=== PATIENT | female | born 2000 | race Caucasian/White ===

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

== ENCOUNTER 2020-02-22 11:33 | Emergency (ER) | payer OTHER ==
[2020-02-22 11:40] VITALS: BP 142/88; PULSE 73; TEMP 98.2; BMI 25.6
--- NOTE | 2020-02-22 12:31 | PDOC ---
History of Present Illness - General Chief Complaint: Pain Stated Complaint: ABD PAIN Time Seen by Provider: 02/22/20 12:16 History Source: Patient - History of Present Illness Timing/Duration: reports: intermittent Quality: reports: cramping Past History - Medical History Allergies/Adverse Reactions: Allergies Allergy/AdvReac Type Severity Reaction Status Date / Time No Known Allergies Allergy Verified 02/22/20 11:40 Home Medications: Ambulatory Orders No Home Medications 0 dose .ROUTE UTDICT 07/06/13 Ibuprofen [Motrin -] 400 mg PO TID #30 tablet 05/01/14 COPD: No - Reproductive History Is Patient Now?: No - Immunization History Immunization Up to Date: Yes - Psycho-Social/Smoking History Smoking Status: No Smoking History: Never smoked Have you smoked in the past 12 months: No Number of Cigarettes Smoked Daily: 0 - Substance Abuse Hx (Audit-C & DAST Scrn) How often the patient has a drink containing alcohol: Never Score: In Men: 4 or > Positive; In Women: 3 or > Positive: 0 Screen Result (Pos requires Nsg. Audit-10AR): Negative Review of Systems - Review of Systems Constitutional: No: Fever, Malaise, Weakness ABD/GI: Yes: Diarrhea, Abdominal cramping. No: Blood Streaked Bowels, Constipated, Nausea, Vomiting, Tarry Stools : No: Dysuria *Physical Exam - Vital Signs Last Vital Signs Temp Pulse Resp BP Pulse Ox 98.2 F 73 18 142/88 100 02/22/20 11:38 02/22/20 11:38 02/22/20 11:38 02/22/20 11:38 02/22/20 11:38 - Physical Exam General Appearance: Yes: Appropriately Dressed. No: Apparent Distress HEENT: positive: Normal Voice Neck: positive: Supple Respiratory/Chest: negative: Respiratory Distress Gastrointestinal/Abdominal: positive: Normal Bowel Sounds, Soft. negative: Tender, Distended, Guarding, Rebound Musculoskeletal: negative: CVA Tenderness Integumentary: positive: Dry, Warm Neurologic: positive: Fully Oriented, Alert, Normal Mood/Affect Medical Decision Making - Medical Decision Making 02/22/20 12:21 20-year-old female, no significant history, here with 3 episodes of non-bloody, watery stools since yesterday. Complains of mild crampy abdominal pain just before a diarrheal episode, otherwise no significant abdominal pain and no nausea vomiting fever or chills. No recent travel or known sick contacts. No recent antibiotic use see exam Diarrhea No RF for serious dysentery Well ashlee and stable w/ benign abd Dc w/ supportive tx To return as needed as d/w pt Discharge - Discharge Information Problems reviewed: Yes Clinical Impression/Diagnosis: Diarrhea Qualifiers: Diarrhea type: unspecified type Qualified Code(s): R19.7 - Diarrhea, unspecified Condition: Good Disposition: HOME - Follow up/Referral - Patient Discharge Instructions Patient Printed Discharge Instructions: Diarrhea Additional Instructions: Most case of diarrhea are not serious and self limited Drink plenty of fluids and take peptomismol as needed Return to ED if symptoms worsen - Post Discharge Activity
== END 2020-02-22 12:45 | disposition home or self-care (01) ==
LOC: JER 11:33
DX: R19.7 Diarrhea, unspecified (principal)
CPT/HCPCS: 99282-25

== ENCOUNTER 2020-06-10 09:49 | Emergency (ER) | payer OTHER | END 2020-06-10 11:43 | disposition home or self-care (01) | LOC: JVIRT 09:49 | DX: Z03.818 Encounter for observation for suspected exposure to other biological agents ruled out (principal) | CPT/HCPCS: C9803; G2012-GT; U0003 ==

== ENCOUNTER 2023-01-12 20:34 | Emergency (ER) | payer BC, OTHER ==
[2023-01-12 20:43] VITALS: BP 145/97; PULSE 81; RESP 18; TEMP 98.1; BMI 21.9
== END 2023-01-12 22:29 | disposition home or self-care (01) ==
LOC: JERFT 20:34
DX: R07.9 Chest pain, unspecified (principal)
CPT/HCPCS: 93005; 93010; 99283-25

== ENCOUNTER 2023-08-15 01:53 | Emergency (ER) | payer BC, OTHER ==
[2023-08-15 02:04] VITALS: BP 151/99; PULSE 89; RESP 18; TEMP 98.1; BMI 23.8
[2023-08-15 03:38] LABS: EPI CELLS >36 /uL (0-25.1); HYALINE CASTS 1 /uL (0-3.1); PH,URINE 5.5 (5.0-8.0); URINE APPEARANCE CLOUDY; URINE BACTERIA 636 /uL (0-1359); URINE BILIRUBIN NEGATIVE (NEGATIVE); URINE COLOR YELLOW; URINE GLUCOSE (UA) NEGATIVE (NEGATIVE); URINE KETONE NEGATIVE (NEGATIVE); URINE LEUK ESTERASE 1+ (NEGATIVE); URINE NITRITE NEGATIVE (NEGATIVE); URINE PROTEIN TRACE (NEGATIVE); URINE RBC 14 /uL (0-23.9); URINE WBC 148 /uL (0-25.8)
[2023-08-15 03:59] LABS: HCG,QUALITATIVE URINE Negative
[2023-08-15 04:42] LABS: BASO % 0.3 % (0-2.0); EOS % 0.3 % (0-4.5); HEMATOCRIT 35.5 % (32.4-45.2); HEMOGLOBIN 12.2 GM/dL (10.7-15.3); LYMPH % 26.4 % (8-40); MCH 31.3 pg (25.7-33.7); MCHC 34.5 g/dl (32.0-36.0); MEAN CELL VOLUME 90.9 fl (80-96); MEAN PLT VOLUME 8.6 fl (7.5-11.1); MONO % 8.2 % (3.8-10.2); NEUT % 64.8 % (42.8-82.8); PLATELET COUNT 216 10^3/uL (134-434); RBC 3.91 M/mm3 (3.60-5.2); RDW 14.5 % (11.6-15.6); WHITE BLOOD COUNT 5.9 K/mm3 (4.0-10.0)
[2023-08-15 05:02] LABS: POTASSIUM 4.6 mmol/L (3.5-5.1)
[2023-08-15 05:05] LABS: ALBUMIN 3.8 g/dl (3.4-5.0); CALCIUM 9.2 mg/dL (8.5-10.1)
[2023-08-15 05:06] LABS: BLOOD UREA NITROGEN 5.3 mg/dL (7-18)
[2023-08-15 05:08] LABS: CREATININE 0.6 mg/dL (0.55-1.3)
[2023-08-15 05:10] LABS: BILIRUBIN,TOTAL 0.5 mg/dL (0.2-1); TOT PROT 6.8 g/dl (6.4-8.2)
[2023-08-15] MEDS ORDERED: CEPHALEXIN MONOHYDRATE 500 MG CAPSULE (UD) ONE (05:53)
[2023-08-15] MEDS ORDERED: KETOROLAC TROMETHAMINE 15 MG/ML VIAL ONE (05:53)
[2023-08-15] MEDS: KETOROLAC TROMETHAMINE 15 MG/ML VIAL IM ONE (06:00)
[2023-08-15] MEDS: CEPHALEXIN MONOHYDRATE 500 MG CAPSULE (UD) PO ONE (06:00)
== END 2023-08-15 06:02 | disposition home or self-care (01) ==
LOC: JER 01:53
PROC: 3E0233Z Introduction of Anti-inflammatory into Muscle, Percutaneous Approach (ICD-10-PCS; principal; 2023-08-15)
DX: R10.30 Lower abdominal pain, unspecified (principal); N39.0 Urinary tract infection, site not specified; N94.6 Dysmenorrhea, unspecified
CPT/HCPCS: 36415; 80053; 81003; 83690; 84703; 85025; 87086; 99284-25